=== PATIENT | male | born 1995 | race Caucasian/White ===

== ENCOUNTER 2016-09-26 09:58 | Emergency (ER) | payer OTHER ==
[~2016-09-26] VITALS: Wt 69.9 kg
[2016-09-26] MEDS ORDERED: LIDOCAINE 1% (MDV) 20 ML INJ SC ONE (11:30)
--- NOTE | 2016-09-26 11:58 | RADRPT ---
PROCEDURE: XR Hands. CLINICAL INDICATION: Pain. Crush injury tip of right fifth finger. TECHNIQUE: Three views of the bilateral hands are available for review. COMPARISON: No prior studies are available for comparison. FINDINGS: Soft tissue swelling and nail bed injury to the fifth finger is noted.. No bony fracture or disloca tion is seen. The joint spaces are preserved. Bone mineralization is normal. No radiopaque foreign b dhara is identified. IMPRESSION: Soft tissue swelling at the tip of the right fifth finger. No acute fracture or dislocation. RPTAT: HH .Randy Osorio MD, Date Time Electronically viewed and signed by .Randy Osorio MD, on 09/26/2016 11:58 .L/
[2016-09-26] MEDS ORDERED: IBUP-1542 PO (12:19)
--- NOTE | 2016-09-26 12:26 | ERD ---
ER Documentation Chief Complaint Date/Time DATE: 09/26/16 TIME: 12:22 Chief Complaint CRUSHING FINGER INJURY TO LEFT 5TH FINGER HPI 21-year-old right-handed male patient with no significant past medical history presents to the ED complaining of a right pinky injury sustained earlier today as he was trying to help his dad move the trunk of the tree. States that it accidentally crushed his right finger. States that his nail almost came off. Reports that it is a throbbing type of pain and rates it a 8 out of 10. Denies any other injuries. Denies any fever, chills, weakness, numbness or tingling, loss of sensation, loss of range of motion. ROS All systems reviewed and are negative except as per history of present illness. Medications Home Meds Active Scripts Ibuprofen* (Motrin*) 600 Mg Tab, 600 MG PO Q6, #30 TAB take with food Prov:DEA BURNETT PA-C 09/26/16 Allergies Allergies: Coded Allergies: No Known Allergy (Unverified , 09/28/16) PMhx/Soc Medical and Surgical Hx: pt denies Medical Hx, pt denies Surgical Hx Hx Alcohol Use: No Hx Substance Use: No Hx Tobacco Use: No Physical Exam Vitals Vital Signs Date Time Temp Pulse Resp B/P Pulse Ox O2 Delivery O2 Flow Rate FiO2 09/26/16 12:30 98.0 77 18 122/66 99 Room Air 09/26/16 09:59 98.0 8 18 99 Physical Exam Const: [id number], well-nourished. In no acute distress. Head: Atraumatic, normocephalic Eyes: Normal Conjunctiva without injection ENT: Normal external ear, nose and mouth. Neck: Full range of motion. No meningismus. Resp: Clear to auscultation bilaterally. No wheezing, rhonchi, rales, or crackles. No accessory muscle use. No retractions. Cardio: Regular rate and rhythm, no murmurs Skin: No petechiae or rashes Back: No midline tenderness. No CVA tenderness. Ext: No cyanosis, or edema. Cap refill less than 2 seconds. Distal pulses intact bilaterally. 1 cm laceration with a flipped nailbed of the right pinky with sustained bleeding noted. Slight ecchymosis surrounding the right nailbed. No edema, erythema. Neur: Awake and alert. Normal gait and coordination. Muscle strength 5/5. Sensation intact bilaterally. Psych: Normal Mood and Affect Results 24 hrs Current Medications Medications (Trade) Dose Ordered Sig/Scot Route PRN Reason Start Time Stop Time Status Last Admin Dose Admin Lidocaine (Xylocaine 1% (Mdv) 20 ml) 20 ml ONCE ONCE SC 09/26/16 11:30 09/26/16 11:31 DC Procedures/MDM This is a 21-year-old male patient with no significant past medical history, right-handed presents to the ED complaining of a right pinky crush injury. Patient is afebrile and nontoxic-appearing. Patient has normal vital signs. A right hand x-ray was ordered to further evaluate patient. Patient gave consent to perform laceration repair. Laceration Repair by me: Anesthesia: 5 cc 1% lidocaine locally digital block Location: [Right pinky] Tendon/Joint/Nerves: No injury Foreign body: None detected after copious irrigation and exploration Technique: 5 5-0 Ethilon Simple Interrupted Sutures Complexity: No subcutaneous sutures/mucosal repair/ edge excision Post Closure Length: [1] cm Patient's bleeding was easily controlled in the department and there is no indication of anemia. Patient is neurovascularly intact pre splint. Metal finger splint was placed. Neurovascularly intact post splint. No evidence of compartment syndrome, neurologic injury, vascular injury, open joint, tendon laceration, or foreign body. Patient is appropriate for outpatient follow up. This case was discussed with my supervising physician Dr. Kathleen who also evaluated patient at this time and agreed with management and discharge plan. 48 hour wound check. Scar minimization instructions given. Instructed patient to return for suture removal in 7-10 days. Ibuprofen was prescribed to patient for pain.. Instructed patient to return to the ED sooner for any worsening symptoms. Follow up with primary care physician in 1-2 days. Patient's questions were answered. Patient understood and agreed with discharge plan. Departure Diagnosis: Primary Impression: Finger injury Encounter type: initial encounter Laterality: right Qualified Code: S69.91XA - Finger injury, right, initial encounter Condition: Stable Patient Instructions: Crush Injury, Hand/Finger Referrals: COMMUNITY CLINICS YOU HAVE RECEIVED A MEDICAL SCREENING EXAM AND THE RESULTS INDICATE THAT YOU DO NOT HAVE A CONDITION THAT REQUIRES URGENT TREATMENT IN THE EMERGENCY DEPARTMENT. FURTHER EVALUATION AND TREATMENT OF YOUR CONDITION CAN WAIT UNTIL YOU ARE SEEN IN YOUR DOCTORS OFFICE WITHIN THE NEXT 1-2 DAYS. IT IS YOUR RESPONSIBILITY TO MAKE AN APPOINTMENT FOR FOLOW-UP CARE. IF YOU HAVE A PRIMARY DOCTOR --you should call your primary doctor and schedule an appointment IF YOU DO NOT HAVE A PRIMARY DOCTOR YOU CAN CALL OUR PHYSICIAN REFERRAL HOTLINE AT IF YOU CAN NOT AFFORD TO SEE A PHYSICIAN YOU CAN CHOSE FROM THE FOLLOWING [facility] [address] [facility] [address] [facility] [address] [facility] [address] [facility] [address] [facility]. [facility] [address] [facility]. [facility] YOU HAVE RECEIVED A MEDICAL SCREENING EXAM AND THE RESULTS INDICATE THAT YOU DO NOT HAVE A CONDITION THAT REQUIRES URGENT TREATMENT IN THE EMERGENCY DEPARTMENT. FURTHER EVALUATION AND TREATMENT OF YOUR CONDITION CAN WAIT UNTIL YOU ARE SEEN IN YOUR DOCTORS OFFICE WITHIN THE NEXT 1-2 DAYS. IT IS YOUR RESPONSIBILITY TO MAKE AN APPOINTMENT FOR FOLOW-UP CARE. IF YOU HAVE A PRIMARY DOCTOR --you should call your primary doctor and schedule and appointment IF YOU DO NOT HAVE A PRIMARY DOCTOR YOU CAN CALL OUR PHYSICIAN REFERRAL HOTLINE AT . IF YOU CAN NOT AFFORD TO SEE A PHYSICIAN YOU CAN CHOSE FROM THE FOLLOWING [facility] INSTITUTIONS: [facility] [address] [place] [address] [facility] [address] [place] [address] [facility] [address] [place] [address] [facility] Additional Instructions: Follow up in 2 days in your clinic for wound check. Follow up with your physician to remove the stitches:For Face wounds 5-7 days.For Elsewhere on the body 7-10 days. Return to this facility if you are not improving as expected. DEA BURNETT PA-C Sep 26, 2016 12:26
[2016-09-26 12:30] VITALS: BP 122/66; PULSE 77; RESP 18; TEMP 98
== END 2016-09-26 12:30 | disposition home or self-care (01) ==
LOC: FTE 09:58
DX: S61.316A Laceration without foreign body of right little finger with damage to nail, initial encounter (principal); W23.0XXA Caught, crushed, jammed, or pinched between moving objects, initial encounter; Y92.9 Unspecified place or not applicable
CPT/HCPCS: 12001; 73130; Z7502; Z7610

== ENCOUNTER 2016-09-28 08:05 | Emergency (ER) | payer OTHER ==
[~2016-09-28] VITALS: Ht 175.3 cm; Wt 65.5 kg
[~2016-09-28 08:05] MED LIST: IBUP-1542 PO
[2016-09-28 08:14] VITALS: Ht 175.3 cm; Wt 65.5 kg
--- NOTE | 2016-09-28 09:33 | ERD ---
ER Documentation Chief Complaint Date/Time DATE: 09/28/16 TIME: 09:29 Chief Complaint Patient here for a recheck of right finger HPI Patient is a 21-year-old male who presents to the ED with a recheck of his laceration of his right second digit. Patient states that he had an injury with a tree trunk 2 days ago. Denies any new onset symptoms. Denies fever or chills. Denies numbness or tingling. Has been taking ibuprofen for his pain. No other complaints. ROS All systems reviewed and are negative except as per history of present illness. Medications Home Meds Active Scripts Ibuprofen* (Motrin*) 600 Mg Tab, 600 MG PO Q6, #30 TAB take with food Prov:DEA BURNETT PA-C 09/26/16 Allergies Allergies: Coded Allergies: No Known Allergy (Unverified , 09/28/16) PMhx/Soc Medical and Surgical Hx: pt denies Medical Hx, pt denies Surgical Hx History of Surgery: No Anesthesia Reaction: No Hx Neurological Disorder: No Hx Respiratory Disorders: No Hx Cardiac Disorders: No Hx Psychiatric Problems: No Hx Miscellaneous Medical Probl: No Hx Alcohol Use: No Hx Substance Use: No Hx Tobacco Use: No Physical Exam Vitals Vital Signs Date Time Temp Pulse Resp B/P Pulse Ox O2 Delivery O2 Flow Rate FiO2 09/28/16 08:14 98.4 55 20 116/59 98 Physical Exam GENERAL: Well-developed, well-nourished male. Appears in no acute distress. HEAD: Normocephalic, atraumatic. EYES: Pupils are equally reactive bilaterally. EOMs grossly intact. No conjunctival erythema. ENT: Moist mucous membranes. No uvula deviation. No kissing tonsils. No exudates. NECK: Supple. No lymphadenopathy or thyromegaly. No meningismus. negative kernig. negative brudinski. LUNG: Clear to auscultation bilaterally. No rhonchi, wheezing, rales or coarse breath sounds. HEART: Regular rate and rhythm. No murmurs, rubs or gallops. Extremities: Equal pulses bilaterally. No peripheral clubbing, cyanosis or edema. No unilateral leg swelling. 5 sutures on the right second digit. Healing well with no erythema or drainage or pus. Flexion of DIP and PIP intact. Sensation intact. Radius ulnar and median nerve intact. NEUROLOGIC: Alert and oriented. Moving all four extremities. 5/5 strength in all extremities. Normal speech. Steady gait. SKIN: Normal color. Warm and dry. No rashes or lesions. Capillary refill < 2 seconds Procedures/MDM ER COURSE: I kept the patient and/or family informed of laboratory and diagnostic imaging results throughout the emergency room course. MEDICAL DECISION MAKING: This is a 21-year-old male who presents with laceration follow-up recheck. Vital signs were reviewed. Patient is afebrile. Patient is not hypoxic. Patient is nontoxic or ill-appearing. Wound shows no evidence of infection, foreign body, neurologic injury, vascular injury, open joint or tendon laceration. Patient appropriate for outpatient follow up. DISCHARGE: At this time, patient is stable for discharge and outpatient management with no new complaints during the ER course. Patient was sent home with instructions to return in 5 days for suture removal. Patient will be discharged home with instructions to recheck for new or worsening symptoms such as fever, nausea, weakness, LOC and to follow up with primary care in the next 1-2 days. Patient was advised to return to the ER for any new or worsening symptoms. Plan was discussed and patient and/or family understands and agrees. Home instructions were given. Departure Diagnosis: Primary Impression: Encounter for wound re-check Condition: Stable Patient Instructions: Wound Check, Lac F/U (No Infection) Additional Instructions: Call your primary care doctor TOMORROW for an appointment during the next 1-2 days.See the doctor sooner or return here if your condition worsens before your appointment time. MITUL YEH PA-C September 28, 2016 09:33
== END 2016-09-28 09:51 | disposition home or self-care (01) ==
LOC: FTE 08:05
DX: Z48.00 Encounter for change or removal of nonsurgical wound dressing (principal)
CPT/HCPCS: 99281

== ENCOUNTER 2016-10-08 08:19 | Emergency (ER) | payer OTHER ==
[~2016-10-08] VITALS: Ht 175.3 cm; Wt 66.0 kg
[2016-10-08 08:25] VITALS: Ht 175.3 cm; Wt 66.0 kg
--- NOTE | 2016-10-08 09:14 | ERD ---
ER Documentation Chief Complaint Date/Time DATE: 10/08/16 TIME: 09:12 Chief Complaint right 5th digit suture removal HPI 21-year-old male comes in for suture removal from the right fifth digit from a crush injury that occurred about 10 days ago. Patient states that he was moving a tree trunk, landing on his finger. On September 26 was injury and he was seen and had an x-ray of his digit that did not show any acute fracture or dislocation. He states that he has had improving pain. No drainage, fevers or chills. Denies weakness. Or paresthesias. ROS All systems reviewed and are negative except as per history of present illness. Medications Home Meds Active Scripts Ibuprofen* (Motrin*) 600 Mg Tab, 600 MG PO Q6, #30 TAB take with food Prov:DEA BURNETT PA-C 09/26/16 Allergies Allergies: Coded Allergies: No Known Allergy (Unverified , 10/08/16) PMhx/Soc History of Surgery: No Anesthesia Reaction: No Hx Neurological Disorder: No Hx Respiratory Disorders: No Hx Cardiac Disorders: No Hx Psychiatric Problems: No Hx Miscellaneous Medical Probl: No Hx Alcohol Use: No Hx Substance Use: No Hx Tobacco Use: No Physical Exam Vitals Vital Signs Date Time Temp Pulse Resp B/P Pulse Ox O2 Delivery O2 Flow Rate FiO2 10/08/16 08:25 97.4 66 16 110/56 98 Physical Exam General: Well-developed, well-nourished. The patient appears in no acute distress. HEENT: Head is normocephalic, atraumatic. No scleral icterus. Neck: Supple. Nontender. Lungs: Clear to auscultation. Normal air movement. Heart: Regular rate and rhythm. S1 and S2 are normal. No murmurs, gallops, or rubs. Abdomen: Nondistended. Extremities: Volar aspect of the distal fingertip of the right fifth digit shows 5 simple interrupted sutures intact, no dehiscence. There is no bleeding. He is able to flex and extend at the DIP, PIP and MCP joint. Capillary refill less than 2 seconds. Neurologic: Alert and oriented 3. No focal deficits. Normal speech and gait. Skin: Normal turgor. No rash or lesions. Procedures/MDM ED course: The digit was soaked in hydrogen peroxide to to remove any sloughing and debris. Suture Removal by me: Sutures removed with tweezers and scissors without incident. Wound shows no evidence of infection, foreign body, neurologic injury, vascular injury, open joint or tendon laceration. Patient to follow up PRN. Departure Diagnosis: Primary Impression: Encounter for removal of sutures Condition: Good Patient Instructions: Suture Removal, No Complication NINA BANEGAS PA-C October 08, 2016 09:14
== END 2016-10-08 09:29 | disposition home or self-care (01) ==
LOC: FTE 08:19
DX: Z48.02 Encounter for removal of sutures (principal)
CPT/HCPCS: 99281